=== PATIENT | female | born 1955 | race Hispanic/Latino ===

== ENCOUNTER 2024-07-31 12:25 | Emergency (ER) | payer MEDICAID, MEDICARE ==
[~2024-07-31] VITALS: Ht 154.9 cm; Wt 44.9 kg
[2024-07-31] MEDS ORDERED: MIRTAZAPINE45 MG (13:23)
[2024-07-31] MEDS ORDERED: SERTRALINE HCL50 MG PO (13:23)
[2024-07-31] MEDS ORDERED: PAMELOR25 MG PO (13:23)
[2024-07-31] MEDS ORDERED: TRAZODONE HCL50 MG PO (13:23)
[2024-07-31] MEDS ORDERED: VENTOLIN HFA18 GM INH (13:23)
[2024-07-31] MEDS ORDERED: ELIQUIS2.5 MG PO (13:23)
[2024-07-31] MEDS ORDERED: HYDROCODON-ACE1 EAC9 (13:23)
[2024-07-31] MEDS ORDERED: METOPROLOL SUCC50 MG PO (13:23)
[2024-07-31] MEDS ORDERED: TYLENOL EXTRA500 MG PO (13:23)
[2024-07-31] MEDS ORDERED: PRAVASTATIN SOD20 MG (13:23)
[2024-07-31] MEDS ORDERED: NEURONTIN100 MG PO (13:23)
[2024-07-31] MEDS ORDERED: SUCRALFATE1 GM PO (13:23)
[2024-07-31] MEDS ORDERED: METHOCARBAMOL500 MG (13:23)
[2024-07-31] MEDS ORDERED: PROTONIX20 MG PO (13:23)
[2024-07-31] MEDS ORDERED: CALCIUM CARBON500 MG PO (13:23)
[2024-07-31] MEDS ORDERED: FAMOTIDINE20 MG PO (13:23)
[2024-07-31] MEDS ORDERED: FARXIGA10 MG (13:23)
[2024-07-31] MEDS ORDERED: IBUPROFEN800 MG PO (13:23)
[2024-07-31] MEDS ORDERED: ENTRESTO 24 MG1 EACH (13:23)
[2024-07-31] MEDS ORDERED: VITAMIN D350 MCG (13:23)
[2024-07-31] MEDS: KETOROLAC TROMETHAMINE 30 MG/ML VIAL IV STA (13:26)
[2024-07-31] MEDS: Morphine 4mg INJECTION 4 MG/ML INJ IV ONE (13:26)
[2024-07-31 14:08] VITALS: PULSE 74; RESP 18; TEMP 97.3; O2SAT 97
== END 2024-07-31 14:29 | disposition home or self-care (01) ==
LOC: FSED 12:42
DX: R10.30 Lower abdominal pain, unspecified (principal); J44.9 Chronic obstructive pulmonary disease, unspecified; I48.91 Unspecified atrial fibrillation; M81.0 Age-related osteoporosis without current pathological fracture; M54.9 Dorsalgia, unspecified; G89.29 Other chronic pain; F17.210 Nicotine dependence, cigarettes, uncomplicated
CPT/HCPCS: 80048; 81003; 85025; 96374; 96375; 99284; J1885; J2270